=== PATIENT | female | born 2000 | race Hispanic/Latino ===

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

== ENCOUNTER 2018-01-08 21:05 | Observation (INO) | payer OTHER ==
[2018-01-08 21:16] VITALS: RESP 16; TEMP 97.5; O2SAT 98
--- NOTE | 2018-01-08 21:22 | C.PDOC ---
History Of Present Illness 17 year old female presents to the ED for evaluation. Patient is s/p tonsillectomy came today because she went to the bathroom today and noticed she spit a large clot with large amount of bright red blood. Patient states she started feeling lightheaded and dizzy. Patient called Dr. Devries who performed surgery and told her to come to the ED. Patient denies CP, SOB, fever, chills, nausea, weakness, numbness. Time Seen by Provider: 01/08/18 21:21 Chief Complaint (Nursing): ENT Problem History Per: Patient History/Exam Limitations: None Onset/Duration Of Symptoms: Days Current Symptoms Are (Timing): Still Present Quality (Mouth/Throat): Drainage Severity: Moderate Pain Scale Rating Of: 4 Anticoagulant/Antiplatlet Use?: No Recent Aspirin Use: No Past Medical History Reviewed: Historical Data, Nursing Documentation, Vital Signs Vital Signs: Last Vital Signs Temp 97.5 F L 01/08/18 21:10 Pulse 110 H 01/08/18 21:10 Resp 16 01/08/18 21:10 BP 116/80 01/08/18 21:10 Pulse Ox 98 01/08/18 21:49 - Medical History PMH: Fractures (Right 4th finger/sport injury) Surgical History: Tonsillectomy Family History: States: No Known Family Hx - Social History Hx Alcohol Use: No Hx Substance Use: No - Immunization History Hx Tetanus Toxoid Vaccination: Yes Hx Influenza Vaccination: Yes Hx Pneumococcal Vaccination: Yes Review Of Systems Constitutional: Negative for: Fever, Chills ENT: Positive for: Throat Pain, Throat Swelling, Other (bleeding) Cardiovascular: Negative for: Chest Pain, Palpitations Respiratory: Negative for: Cough, Shortness of Breath Psych: Positive for: Anxiety Physical Exam - Physical Exam Appears: Non-toxic Skin: Warm, Dry Head: Normacephalic Eye(s): bilateral: Normal Inspection Oral Mucosa: Moist Tongue: Normal Appearing Throat: Other (small amount of bleeding from lower aspect of left sided throat .cautery scars b/l) Neck: Supple Chest: Symmetrical Cardiovascular: Rhythm Regular Respiratory: No Rales, No Rhonchi, No Wheezing Neurological/Psych: Oriented x3, Normal Speech Gait: Steady ED Course And Treatment O2 Sat by Pulse Oximetry: 98 (ON RA) Pulse Ox Interpretation: Normal Progress Note: Plan: - Labs. - UA. dr devries on his way to see the pt in the ed Disposition Discussed With .: Walker Devries Comment: accepted the pt on his service and took over the care at 9:50 PM Doctor Will See Patient In The: ED Counseled Patient/Family Regarding: Studies Performed, Diagnosis - Disposition Disposition: HOSPITALIZED Disposition Time: 21:22 Condition: GUARDED Forms: [facility] (Serbian) - POA Present On Arrival: None - Clinical Impression Clinical Impression: Post-tonsillectomy hemorrhage - Scribe Statement The provider has reviewed the documentation as recorded by the Scribe Herbie Brennan All medical record entries made by the Scribe were at my direction and personally dictated by me. I have reviewed the chart and agree that the record accurately reflects my personal performance of the history, physical exam, medical decision making, and the department course for this patient. I have also personally directed, reviewed, and agree with the discharge instructions and disposition. Decision To Admit - Pt Status Changed To: Hospital Disposition Of: SDS- Endo,OR,Cath,IR - . Bed Request Type: Same Day Surgery Admitting Physician: Walker Devries Patient Diagnosis: Post-tonsillectomy hemorrhage
[2018-01-08] MEDS ORDERED: Propofol 10 mg/ml Inj (20 ML) ONE (21:52)
[2018-01-08 22:02] VITALS: BP 124/85; PULSE 79
[2018-01-08] MEDS ORDERED: HYDROmorphone 0.5 mg/0.5 ml ISec IVP PRN (22:02)
[2018-01-08] MEDS ORDERED: Midazolam 2 MG/2 ML VIAL ONE (22:12)
[2018-01-08] MEDS ORDERED: Succinylcholine Chloride 20 mg/ml Syr (5 ml) IV ONE (22:29)
--- NOTE | 2018-01-10 06:11 | OP ---
PROCEDURE DATE: 01/08/2018 PREOPERATIVE DIAGNOSIS: Post-tonsillectomy bleeding. POSTOPERATIVE DIAGNOSIS: Post-tonsillectomy bleeding. PROCEDURE: Control of post-tonsillectomy bleeding. SIGNIFICANT FINDINGS: Bleeding area noted in the left tonsillar pillar. DESCRIPTION OF PROCEDURE: The patient was brought into room, placed in supine position. Anesthesia initiated through an ET tube. The patient was draped in the usual manner. A mouth gag was placed in the oral cavity, opened and suspended on the Pina transcribing operator head the usual manner. Bleeding spot was noted on the left tonsillar fossa. Suction cautery was used to control bleeding. Mouth gag was taken down and removed. The patient was taken off anesthesia and taken to the recovery room in a stable manner. Walker Devries MD
== END 2018-01-09 01:00 | disposition home or self-care (01) ==
LOC: C.ER 21:05 → INTOOBSV 21:46 → C.9E 21:46 → C.3T 23:30
PROVIDERS: ADMIT Otolaryngology; ATTEND Otolaryngology
PROC: 0W33XZZ Control Bleeding in Oral Cavity and Throat, External Approach (ICD-10-PCS; principal; 2018-01-08 21:52)
DX: J95.830 Postprocedural hemorrhage of a respiratory system organ or structure following a respiratory system procedure (principal); Y83.6 Removal of other organ (partial) (total) as the cause of abnormal reaction of the patient, or of later complication, without mention of misadventure at the time of the procedure
CPT/HCPCS: 42961; 82948; 99285; G0378; J2250; J2704; J3010; J7040